=== PATIENT | female | born 1960 | race Caucasian/White ===

== ENCOUNTER 2022-03-31 11:50 | Emergency (ER) | payer OTHER ==
[2022-03-31 12:18] VITALS: BP 164/96
== END 2022-03-31 15:36 | disposition home or self-care (01) | DRG 816 ==
LOC: ED 11:50
DX: R59.9 Enlarged lymph nodes, unspecified (principal)

== ENCOUNTER 2024-04-23 20:42 | Observation (INO) | payer OTHER ==
[~2024-04-23] VITALS: Ht 175.3 cm; Wt 96.7 kg
[2024-04-23 20:49] VITALS: BP 144/82
[2024-04-23 21:01] VITALS: BP 156/84
[2024-04-23] MEDS ORDERED: EMGALITY100 MG/ML (21:14)
[2024-04-23] MEDS ORDERED: ZOMIG5 MG PO (21:15)
[2024-04-23] MEDS ORDERED: UBRELVY50 MG (21:15)
[2024-04-23] MEDS ORDERED: [UNRECOGNIZED DRUG - REMARK] (21:16)
[2024-04-23] MEDS ORDERED: DiphenhydrAMINE HCL 50 MG/ML SDV IV ONE (21:25)
[2024-04-23] MEDS ORDERED: KETOROLAC TROMETHAMINE 30 MG/ML SDV IV ONE (21:25)
[2024-04-23 21:46] LABS: BASO% 0.7 % (0-3); EOS% 4.8 % (0-8); HEMATOCRIT 43.2 % (37.0-47.0); HEMOGLOBIN 13.6 g/dl (12.0-16.0); IMMATURE GRANULOCYTES 0.6 % (0.0-5.0); LYMPH% 24.9 % (15-41); MEAN CELL VOLUME 91.1 fL CALC (80.0-100.0); MEAN CORPUSCULAR HGB 28.7 pG CALC (26.0-32.0); MEAN CORPUSCULAR HGB CONC 31.5 g/dL CAL (32.0-36.0); MONO% 9.3 % (2-13); NEUT# 4.21 thou/uL (2.00-7.15); NEUT% 59.7 % (42-76); RED BLOOD COUNT 4.74 mill/uL (4.20-5.60)
[2024-04-23 21:58] LABS: ALBUMIN 3.7 g/dL (3.2-5.0); BILIRUBIN, TOTAL 0.7 mg/dL (0.02-1.3); CREATININE 0.8 mg/dL (0.5-1.0); TOTAL PROTEIN 6.3 g/dL (6.3-8.2)
[2024-04-23 21:59] LABS: POTASSIUM 5.4 mmol/l (3.5-5.1)
[2024-04-23] MEDS ORDERED: SODIUM POLYSTYRENE SULFONATE 15 G/BTL POWDER PO ONE (23:40)
[2024-04-23 23:44] LABS: URINE BILIRUBIN - DIPSTICK Negative (NEGATIVE); URINE BLOOD DIPSTICK Negative (NEGATIVE); URINE GLUCOSE - DIPSTICK Negative (NEGATIVE); URINE KETONE Negative (NEGATIVE); URINE LEUK ESTERASE Negative (NEGATIVE); URINE NITRITE - DIPSTICK Negative (Negative); URINE PROTEIN - DIPSTICK Negative (NEG-TRACE); URINE UROBILINOGEN - DIPSTICK 0.2 E.U./dL (0.2)
[2024-04-23 23:45] LABS: URINE COLOR Yellow
[2024-04-24] MEDS ORDERED: ASPIRIN 81 MG/TAB PO ONE (00:45)
[2024-04-24] MEDS ORDERED: SODIUM CHLORIDE 0.9% 1,000 ML IV ONE (00:50)
[2024-04-24] MEDS ORDERED: ATORVASTATIN CALCIUM 40 MG/TAB PO ONE (00:50)
[2024-04-24 01:00] VITALS: BP 146/89
[2024-04-24 01:00] LABS: CHOLESTEROL HDL RATIO 1.8 (<4.4 (CALC))
[2024-04-24 01:30] VITALS: BP 145/80
[2024-04-24 01:31] LABS: TSH, 3RD GENERATION 0.53 uIU/mL (0.47 - 4.68)
[2024-04-24 02:00] VITALS: BP 154/73
[2024-04-24 03:34] VITALS: BP 155/75
[2024-04-24] MEDS ORDERED: HYDROmorphone HCL 2 MG/AMP IV PRN (04:15)
[2024-04-24 07:38] VITALS: BP 134/62
[2024-04-24] MEDS ORDERED: CYMBALTA60 MG PO (10:53)
[2024-04-24 11:46] VITALS: BP 141/67
[2024-04-24] MEDS ORDERED: ASPIRIN ADULT L81 M2 PO (12:44)
[2024-04-24] MEDS ORDERED: ATORVASTATIN CA80 MG PO (12:45)
== END 2024-04-24 13:46 | disposition home or self-care (01) | DRG 103 ==
LOC: ED 20:42 → ED-I 04-24 00:27 → ED 04-24 00:50 → MS2 04-24 00:51
PROVIDERS: Family Medicine; ADMIT Internal Medicine; ATTEND Internal Medicine
DX: G43.909 Migraine, unspecified, not intractable, without status migrainosus (principal); I10 Essential (primary) hypertension; E78.5 Hyperlipidemia, unspecified; Z86.73 Personal history of transient ischemic attack (TIA), and cerebral infarction without residual deficits
CPT/HCPCS: J1200; Q9967

== ENCOUNTER 2024-06-29 02:44 | Emergency (ER) | payer OTHER ==
[~2024-06-29] VITALS: Ht 175.3 cm; Wt 72.5 kg
[~2024-06-29 02:44] MED LIST: ASPIRIN ADULT L81 M2 PO; ATORVASTATIN CA80 MG PO; CYMBALTA60 MG PO; EMGALITY100 MG/ML; UBRELVY50 MG; ZOMIG5 MG PO; [UNRECOGNIZED DRUG - REMARK]
[2024-06-29 02:54] VITALS: BP 158/73
[2024-06-29] MEDS ORDERED: IPRATROPIUM BROMIDE 0.5 MG/2.5 ML SOL IN ONE (03:00)
[2024-06-29 03:02] VITALS: BP 131/70
[2024-06-29] MEDS ORDERED: IPRATROPIUM-Albuterol 0.5MG-2.5MG/3 ML NEB ONE (03:05)
[2024-06-29 03:16] VITALS: BP 102/45
[2024-06-29 03:30] VITALS: BP 144/59
[2024-06-29 04:00] VITALS: BP 124/60
[2024-06-29] MEDS ORDERED: PROAIR RES108 MCG/AC IH (04:13)
[2024-06-29] MEDS ORDERED: DECADRON4 MG PO (04:13)
[2024-06-29] MEDS ORDERED: BENZONATATE200 MG PO (04:13)
[2024-06-29 04:15] VITALS: BP 124/60
== END 2024-06-29 04:22 | disposition home or self-care (01) | DRG 195 ==
LOC: ED 02:44
DX: J10.1 Influenza due to other identified influenza virus with other respiratory manifestations (principal); I10 Essential (primary) hypertension; Z86.73 Personal history of transient ischemic attack (TIA), and cerebral infarction without residual deficits; Z20.822 Contact with and (suspected) exposure to COVID-19

== ENCOUNTER 2024-07-06 17:16 | Emergency (ER) | payer OTHER ==
[~2024-07-06] VITALS: Ht 175.3 cm; Wt 82.0 kg
[~2024-07-06 17:16] MED LIST changes: +BENZONATATE200 MG PO; +DECADRON4 MG PO; +PROAIR RES108 MCG/AC IH
[2024-07-06] MEDS ORDERED: IPRATROPIUM-Albuterol 0.5MG-2.5MG/3 ML NEB ONE ×2 (17:25)
[2024-07-06] MEDS ORDERED: methylPREDNISolone SODIUM SUCC 125 MG/2 ML SDV IV ONE (17:25)
[2024-07-06 17:30] VITALS: BP 140/82
--- NOTE | 2024-07-06 17:48 | NUR ---
UNABLE TO OBTAIN SAMPLE, DR DU NOTIFIED, DC'D ORDER PER DR DU
[2024-07-06 18:05] LABS: BASO% 0.4 % (0-3); EOS% 3.5 % (0-8); HEMOGLOBIN 14.7 g/dl (12.0-16.0); IMMATURE GRANULOCYTES 0.7 % (0.0-5.0); LYMPH% 26.4 % (15-41); MEAN CELL VOLUME 85.7 fL CALC (80.0-100.0); MEAN CORPUSCULAR HGB CONC 32.7 g/dL CAL (32.0-36.0); MONO% 8.1 % (2-13); NEUT# 5.72 thou/uL (2.00-7.15); NEUT% 60.9 % (42-76); RED BLOOD COUNT 5.25 mill/uL (4.20-5.60); RED CELL DISTRI WIDTH 13.4 % (11.5-15.5)
[2024-07-06 18:21] LABS: ALBUMIN 4.1 g/dL (3.2-5.0); ALKALINE PHOSPHATASE 67 u/l (38-126); ANION GAP 14 (6-22 (CALC)); BILIRUBIN, TOTAL 0.7 mg/dL (0.02-1.3); BUN 24 mg/dL (8-23); BUN/CREATININE RATIO 32 (12-20 (CALC)); CARBON DIOXIDE 24 mmol/l (22-30); CHLORIDE 100 mmol/l (95-108); CREATININE 0.8 mg/dL (0.5-1.0); ESTIMATED GFR 82 ML/MIN (>=90 (CALC)); POTASSIUM 4.5 mmol/l (3.5-5.1); SGOT/AST 31 u/l (9-36); SODIUM 133 mmol/l (137-146); TOTAL PROTEIN 7.1 g/dL (6.3-8.2)
[2024-07-06] MEDS ORDERED: VENTOLIN HFA108 MCG IN (19:06)
[2024-07-06] MEDS ORDERED: PREDNISONE20 MG PO (19:06)
[2024-07-06] MEDS ORDERED: ALBUTEROL SULFATE 8 GM INH IN ONE (19:10)
[2024-07-06 19:29] VITALS: BP 140/82
== END 2024-07-06 19:42 | disposition home or self-care (01) | DRG 204 ==
LOC: ED 17:16
PROVIDERS: Family Medicine
DX: R06.02 Shortness of breath (principal); I10 Essential (primary) hypertension; Z86.73 Personal history of transient ischemic attack (TIA), and cerebral infarction without residual deficits; Z20.822 Contact with and (suspected) exposure to COVID-19